=== PATIENT | male | born 1990 | race African-American/Black ===

== ENCOUNTER 2017-01-19 17:04 | Emergency (ER) | payer OTHER ==
[~2017-01-19] VITALS: Ht 182.9 cm; Wt 118.2 kg
[2017-01-19] MEDS ORDERED: SULFAMETHOX/TRIMETH DS 800-160 MG/TABLET PO ONE (18:30)
[2017-01-19] MEDS ORDERED: HYDROCODONE/ACETAMINOPHEN 5-325 MG TABLET PO ONE (18:30)
[2017-01-19 19:29] VITALS: BP 144/79
== END 2017-01-19 19:39 | disposition home or self-care (01) ==
LOC: EMS 17:05
DX: K64.9 Unspecified hemorrhoids (principal); K61.1 Rectal abscess; F11.90 Opioid use, unspecified, uncomplicated
CPT/HCPCS: 99283